=== PATIENT | male | born 1965 | race African-American/Black ===

== ENCOUNTER 2022-01-18 06:30 | Emergency (ER) | payer OTHER ==
[~2022-01-18] VITALS: Ht 175.3 cm; Wt 84.8 kg
[2022-01-18 06:34] VITALS: BP 134/72
--- NOTE | 2022-01-18 06:44 | NUR ---
BRADY HERNANDEZ [facility] C/O L FOOT PAIN WHEN WALKING. PT A/XO4. TOLERATING R/A WELL WITH NO SOB.
[2022-01-18] MEDS ORDERED: METH-647 PO (07:11)
[2022-01-18] MEDS ORDERED: POLY17PO4 PO (07:11)
[2022-01-18] MEDS ORDERED: PRED20TA PO (07:11)
--- NOTE | 2022-01-18 07:19 | NUR ---
Patient discharged to home in stable condition. Written and verbal after care instructions given. Patient verbalizes understanding of instruction.
== END 2022-01-18 07:28 | disposition home or self-care (01) ==
LOC: ER 06:38
DX: R20.2 Paresthesia of skin (principal); I10 Essential (primary) hypertension; J45.909 Unspecified asthma, uncomplicated; G89.29 Other chronic pain; Z79.52 Long term (current) use of systemic steroids; Z79.899 Other long term (current) drug therapy